=== PATIENT | female | born 1990 | race Caucasian/White ===

== ENCOUNTER 2018-07-03 12:05 | Emergency (ER) | payer OTHER ==
[2018-07-03 12:17] VITALS: BP 99/68; TEMP 97.9; BMI 23.8
--- NOTE | 2018-07-03 12:18 | ED.PDOC ---
General ED Provider: Dr. JUAN RAMON CANNON Chief Complaint: Behavioral Complaint Stated Complaint: suicidal ideation Time Seen by Physician: 12:15 (ROBBIN PRESENT AT ALL TIMES ) Mode of Arrival: Police (BOYFRIEND CALLED POLICE CALLED POLICE PT IS IN SHOWER WITH A BLADE) Nursing and Triage Documentation Reviewed and Agree: No Does patient meet sepsis criteria?: No System Inflammatory Response Syndrome: Not Applicable Sepsis Protocol: For patient's 13 years and over: Temp is 96.8 and below OR 101 and greater Pulse >90 BPM Resp >20/minute Acutely Altered Mental Status Are patient's symptoms suggestive of a new infection, such as: -Pneumonia -Skin, Soft Tissue -Endocarditis -UTI -Bone, Joint Infection -Implantable Device -Acute Abdominal Infection -Wound Infection -Meningitis -Blood Stream Catheter Infection -Unknown Psychological Complaint Exam - Psychiatric Complaint/Exam Patient Complains Of: Present: Depression, Suicidal thoughts, Suicidal gestures (45 MIN AGO POLICE ARRIVED PT UNHARMED BOYFRIEND , ADMIITED TO POLICE SHE WAS GOING TO HURT HERSELF) Symptoms Are: Still present Timing: Constant Episodes Lasting: Days Initial Severity: Severe Current Severity: Severe Character: Present: Depressed, Fearful, Anxious, Frustrated Aggravating: Reports: Recent stress (WITH ROBBIN IN THE ROOM PT REFUSED GIVE ANSWERES WHY SHE WAS ABOUT TO DO THIS) Related History: Reports: Suicidal thoughts, Suicidal plan Completed Suicide Risk Factors: , Unemployed, Past suicide attempt ( SHE HAS SUPERFICIALY CUT HESELF LEFT FOREARM ROBBIN PRESENT WHEN PT ADMITTED THIS ISSUE ) Patient Accompanied By: Police Patient In Custody Of Police: No Social Withdrawal Present: Yes Social Isolation Present: Yes Prior Suicide Attempt: Yes (SEE ABOVE) Injury From Prior Suicide Attempt: Yes (OLD SCARS ) Related Surgical History: Reports: None Patient Uncooperative For Exam: No Mood: Present: Depressed, Anxious Appearance: Present: Clean Thought Process: Present: Illogical Insight: Present: Limited Memory: Intact Judgement: Impaired Danger To Others: No Patient Medically Stable For: Psych evaluation Differential Diagnoses: Suicidal Ideation (NO HOMOCIDAL GESTURES , NEGATIVE ACUTE PSYCHOSIS , NO OVERDOSE ) Review of Systems - Review Of Systems Constitutional: Reports: No symptoms Eyes: Reports: No symptoms Ears, Nose, Mouth, Throat: Reports: No symptoms Respiratory: Reports: No symptoms Cardiac: Reports: No symptoms GI: Reports: No symptoms : Reports: No symptoms Musculoskeletal: Reports: No symptoms Skin: Reports: No symptoms Neurological: Reports: Anxiety, Depressed, Emotional problems. Denies: Cognitive dysfunction, Headache, Numbness Endocrine: Reports: No symptoms Hematologic/Lymphatic: Reports: No symptoms All Other Systems: Reviewed and Negative Past Medical History - Past Medical History Previously Healthy: Yes Endocrine: Reports: None Cardiovascular: Reports: None Respiratory: Reports: None Hematological: Reports: None Gastrointestinal: Reports: None Genitourinary: Reports: Other (yeast infection) Neuro/Psych: Reports: None Musculoskeletal: Reports: None Cancer: Reports: None - Surgical History General Surgical History: Reports: None - Family History Family History: Reports: Unknown - Social History Smoking Status: Never smoker (HAS 3 CHILDERN ALL OF THEM ARE GIRLS. PRESENTLY UNEMPLOYED, ) Hx Substance Use: No Alcohol Screening: None Physical Exam - Physical Exam Appearance: Well-appearing, No pain distress, Well-nourished Eyes: DANIKA, EOMI, Conjunctiva clear ENT: Ears normal, Nose normal, Oropharynx normal Respiratory: Airway patent, Breath sounds clear, Breath sounds equal, Respirations nonlabored Cardiovascular: RRR, Pulses normal, No rub, No murmur GI/: Soft, Nontender, No masses, Bowel sounds normal, No Organomegaly Musculoskeletal: Normal strength, ROM intact, No edema, No calf tenderness Skin: Warm, Dry, Normal color Neurological: Sensation intact, Motor intact, Reflexes intact, Cranial nerves intact, Alert, Oriented Psychiatric: Affect appropriate, Mood appropriate Interpretation - EKG Interpretation Rate: Normal Rhythm: Sinus Ectopy: None Flynn: NL ST Segment: Normal Critical Care Note - Critical Care Note Total Time (mins): 0 Course - Course Hematology/Chemistry: 07/03/18 12:25 07/03/18 12:25 Orders, Labs, Meds: Lab Review 07/03/18 07/03/18 07/03/18 12:25 12:25 12:40 WBC 3.22 L RBC 4.18 L Hgb 12.5 Hct 37.4 MCV 89.5 MCH 29.9 MCHC 33.4 RDW Coeff of Arturo 12.4 Plt Count 169 Immature Gran % (Auto) 0.3 Neut % (Auto) 46.6 Lymph % (Auto) 37.6 [place] % (Auto) 13.7 H Eos % (Auto) 1.2 Baso % (Auto) 0.6 Immature Gran # (Auto) 0.0 Neut # (Auto) 1.5 L Lymph # (Auto) 1.2 [place] # (Auto) 0.4 Eos # (Auto) 0.0 Baso # (Auto) 0.0 Sodium 141 Potassium 4.0 Chloride 108 H Carbon Dioxide 27 Anion Gap 10.0 BUN 13 Creatinine 0.72 Estimated GFR (MDRD) 97.00 BUN/Creatinine Ratio 18.05 Glucose 81 Calcium 9.2 Total Bilirubin 0.3 AST 15 ALT 15 Alkaline Phosphatase 38 L Total Protein 6.6 Albumin 3.6 Globulin 3.0 Albumin/Globulin Ratio 1.20 Urine Color Urine Clarity Urine pH Ur Specific [place] Urine Protein Urine Glucose (UA) Urine Ketones Urine Blood Urine Nitrite Urine Bilirubin Urine Urobilinogen Ur Leukocyte Esterase Urine Microscopic RBC Ur Squamous Epith Cells Urine Mucus Urine Test Salicylate Level mg/dL < 5.0 Urine Opiates Screen Negative Ur Oxycodone Screen Negative Urine Methadone Screen Negative Ur Propoxyphene Screen Negative Acetaminophen < 3 L Ur Barbiturates Screen Negative U Tricyclic Antidepress Negative Ur Phencyclidine Scrn Negative Ur Amphetamine Screen Negative U Methamphetamines Scrn Negative U Benzodiazepines Scrn Negative Urine Cocaine Screen Negative U Cannabinoids Screen Positive Plasma/Serum Alcohol < 10.0 07/03/18 07/03/18 12:40 12:40 WBC RBC Hgb Hct MCV MCH MCHC RDW Coeff of Arturo Plt Count Immature Gran % (Auto) Neut % (Auto) Lymph % (Auto) [place] % (Auto) Eos % (Auto) Baso % (Auto) Immature Gran # (Auto) Neut # (Auto) Lymph # (Auto) [place] # (Auto) Eos # (Auto) Baso # (Auto) Sodium Potassium Chloride Carbon Dioxide Anion Gap BUN Creatinine Estimated GFR (MDRD) BUN/Creatinine Ratio Glucose Calcium Total Bilirubin AST ALT Alkaline Phosphatase Total Protein Albumin Globulin Albumin/Globulin Ratio Urine Color Yellow Urine Clarity Slightly Urine pH 6.0 Ur Specific [place] >=1.030 Urine Protein Negative Urine Glucose (UA) Negative Urine Ketones Negative Urine Blood 1+ Urine Nitrite Negative Urine Bilirubin Negative Urine Urobilinogen 0.2 Ur Leukocyte Esterase Negative Urine Microscopic RBC 2-5 Ur Squamous Epith Cells 0-2 Urine Mucus Trace Urine Test Negative Salicylate Level mg/dL Urine Opiates Screen Ur Oxycodone Screen Urine Methadone Screen Ur Propoxyphene Screen Acetaminophen Ur Barbiturates Screen U Tricyclic Antidepress Ur Phencyclidine Scrn Ur Amphetamine Screen U Methamphetamines Scrn U Benzodiazepines Scrn Urine Cocaine Screen U Cannabinoids Screen Plasma/Serum Alcohol Orders Category Date Time Status EKG-(ED ONLY) Stat CARDIO 07/03/18 12:09 Completed ED DOOR CLAMP OPERATOR APPLIED ONCE EMERGENCY 07/03/18 12:09 Active Mental Health Consult [ED MENTAL HEALTH CONSULT] .ONCE EMERGENCY 07/03/18 12: 09 Active ACETAMINOPHEN Stat LAB 07/03/18 12:25 Completed BLOOD ALCOHOL Stat LAB 07/03/18 12:25 Completed CBC W/ AUTO DIFF Stat LAB 07/03/18 12:25 Completed COMPREHENSIVE METABOLIC PANEL Stat LAB 07/03/18 12:25 Completed DRUG SCREEN, URINE, RAPID Stat LAB 07/03/18 12:40 Completed SALICYLATE Stat LAB 07/03/18 12:25 Completed URINALYSIS C & S IF INDICATED Stat LAB 07/03/18 12:40 Completed URINE Stat LAB 07/03/18 12:40 Completed Vital Signs: Temp Pulse Resp BP Pulse Ox 07/03/18 12:08 97.9 F 75 16 99/68 100 Departure - Departure Time of Disposition: 19:00 Disposition: HOME SELF-CARE Discharge Problem: Suicide gesture Instructions: Help Prevent Suicide (ED), Suicide Prevention (ED) Condition: Good Pt referred to PMD for follow-up: Yes IPMP verified?: No Additional Instructions: Please call your Family Physician as soon as possible to schedule a follow-up appointment FOLLOW UP WITH [facility] DISCUSSED WITH MENTAL HEALTH LABORATORY ADMINISTRATIVE DIRECTOR. Allergies/Adverse Reactions: Allergies No Known Allergies Allergy (Verified 07/03/18 12:17) Home Medications: Ambulatory Orders Escitalopram Oxalate [Lexapro] 10 mg PO DAILY 07/03/18 Disposition Discussed With: Patient Discharge Problem: Suicide gesture Qualifiers: Encounter type: initial encounter Qualified Code(s): X83.8XXA - Intentional self-harm by other specified means, initial encounter
== END 2018-07-03 20:45 | disposition home or self-care (01) ==
LOC: ED 12:05
DX: S51.812A Laceration without foreign body of left forearm, initial encounter (principal); X78.8XXA Intentional self-harm by other sharp object, initial encounter
CPT/HCPCS: 36415; 80053; 80306; 80307; 81001; 81025; 85025; 93005; 93010; 99285